=== PATIENT | female | born 1950 | race Caucasian/White ===

== ENCOUNTER 2016-08-03 10:22 | Day surgery (SDC) | payer BC, OTHER ==
[2016-07-29 09:32] VITALS: BMI 34.0
--- NOTE | 2016-07-29 10:11 | PAT Medication Instructions ---
Service Date Jul 29, 2016. Current Home Medication List Aspirin (Aspirin Ec), 81 MG PO QAM Budesonide/Formoterol Fumarate (Symbicort 160/4.5 Inhaler ), 2 PUFFS INH BID Cetirizine (Zyrtec), 10 MG PO HS Chlorphenir/Hydrocod Polistir (Tussionex), 5 ML PO BID PRN for RN Escitalopram (Lexapro), 10 MG PO QAM Lisinopril (Zestril), 10 MG PO QAM Lorazepam (Ativan), 0.5 MG PO HS PRN for RN Montelukast Sodium (Montelukast Sodium), 1 TAB PO QAM Simvastatin (Zocor), 40 MG PO HS Triamcinolone Acetonide (Nasal (Nasacort Allergy 24Hr), 2 SPRAYS [place] HS Medication Instructions For Your Scheduled Surgery Aspirin (Aspirin Ec), 81 MG PO QAM (stopped 07/26/16 per surgeon instructions) - Hold the following medications the morning of surgery: Lisinopril (Zestril), 10 MG PO QAM Chlorphenir/Hydrocod Polistir (Tussionex), 5 ML PO BID PRN for RN - Take the following medications the morning of surgery with a sip of water: Montelukast Sodium (Montelukast Sodium), 1 TAB PO QAM Escitalopram (Lexapro), 10 MG PO QAM Budesonide/Formoterol Fumarate (Symbicort 160/4.5 Inhaler ), 2 PUFFS INH BID Tylenol (if needed) Lorazepam (Ativan), 0.5 MG PO HS PRN for RN (if needed) - Take the following medications as scheduled the night before surgery: Triamcinolone Acetonide (Nasal (Nasacort Allergy 24Hr), 2 SPRAYS [place] HS Simvastatin (Zocor), 40 MG PO HS Lorazepam (Ativan), 0.5 MG PO HS PRN for RN Chlorphenir/Hydrocod Polistir (Tussionex), 5 ML PO BID PRN for RN Cetirizine (Zyrtec), 10 MG PO HS Budesonide/Formoterol Fumarate (Symbicort 160/4.5 Inhaler ), 2 PUFFS INH BID Tylenol (if needed) If you have any questions please call us at [phone] or [phone] ( [place]ila) or [phone]
[2016-07-29 11:32] LABS: BASO % 0.3 %; BASO ABS # 0.02 K/uL (0-0.2); COMPLETE YES; EOS % 4.8 %; HEMATOCRIT 30.1 % (37-47); IG% 0.2 %; LYMPH % 17.7 %; LYMPH ABS # 1.07 K/uL (1.2-3.4); MEAN CELL VOLUME 91.8 fL (80-100); MEAN CORPUSCULAR HEMOGLOBIN 30.5 pg (25-34); MEAN CORPUSCULAR HGB CONC 33.2 g/dl (32-36); MEAN PLATELET VOLUME 9.5 fL (7.4-10.4); MONO % 6.3 %; NEUT % 70.7 %; PLATELET COUNT 257 K/uL (130-400); RED BLOOD COUNT 3.28 M/uL (4.2-5.4); WHITE BLOOD COUNT 6.05 K/uL (4.8-10.8)
[2016-07-29 12:01] LABS: BUN/CREATININE RATIO 15.6 (10-20); CREATININE 0.74 mg/dl (0.60-1.20); POTASSIUM 3.7 mmol/L (3.5-5.1)
[~2016-08-03] VITALS: Ht 154.9 cm; Wt 83.0 kg
[~2016-08-03 10:22] MED LIST: ASPI81TA28 PO; CEFAZOLIN 2000 MG/60 ML D5W IV SCH; CETI10TA84 PO; ESCI10TA17 PO; HYDR1SUS2 PO; LACTATED RINGER'S 1000ML 1,000 ML IV SCH; LISI-461 PO; LORA-741 PO; MONT1TAB5 PO; OXYMETAZOLINE HCL 0.05% NA SPR 15 ML BTL SCH; SIMV40TA2 PO; SYMIN160 INH; TRIA1SPR4 NAE
[2016-08-03 10:45] VITALS: BP 143/74; PULSE 81; TEMP 36.6; O2SAT 92; Ht 154.9 cm; Wt 83.0 kg
[2016-08-03] MEDS ORDERED: LIDOCAINE HCL 2% 2 ML VIAL (20MG/ML) ONE (10:57)
[2016-08-03] MEDS ORDERED: MIDAZOLAM HCL 1 MG/ML 2ML VIAL ONE (10:57)
[2016-08-03] MEDS ORDERED: ROCURONIUM BROMIDE 10 MG/ML 5 ML VIAL ONE (10:57)
[2016-08-03] MEDS ORDERED: PHENYLEPHRINE HCL INJ 10 MG/ML VIAL ONE (10:57)
[2016-08-03] MEDS ORDERED: SUCCINYLCHOLINE CHLORIDE 20 MG/ML 10 ML VIAL IV ONE (10:57)
[2016-08-03] MEDS ORDERED: NEOSTIGMINE METHYLSULFATE 5 MG/5 ML SYR ONE (10:57)
[2016-08-03] MEDS ORDERED: EpHEDrine SULFATE INJ 50 MG/ML AMP ONE (10:57)
[2016-08-03] MEDS ORDERED: GLYCOPYRROLATE INJ 0.2 MG/ML VIAL ONE (10:57)
[2016-08-03] MEDS ORDERED: FENTANYL CITRATE INJ 50 MCG/1 ML 2 ML VIAL ONE (10:57)
[2016-08-03] MEDS ORDERED: PROPOFOL IV EMULSION 10 MG/ML 20 ML VIAL IV ONE (10:57)
[2016-08-03] MEDS ORDERED: ONDANSETRON INJ 2 MG/ML 2 ML VIAL ONE (10:57)
[2016-08-03] MEDS ORDERED: DEXAMETHASONE SOD INJ 4 MG/ML VIAL ONE (10:57)
--- NOTE | 2016-08-03 12:15 | History & Physical Bridge Note ---
H&P Re-Evaluation Bridge Note: I have examined the patient, reviewed the History & Physical and in the interval since the performance of the History & Physical I have noted the following changes of clinical significance: No changes noted
[2016-08-03] MEDS ORDERED: ONDANSETRON INJ 2 MG/ML 2 ML VIAL IV PRN ×2 (13:15→14:30)
[2016-08-03] MEDS ORDERED: ATROPINE SULFATE 0.1 MG/ML 5ML SYR IV PRN (13:15)
[2016-08-03] MEDS ORDERED: EpHEDrine SULFATE INJ 50 MG/ML AMP IV PRN (13:15)
[2016-08-03] MEDS ORDERED: MIX: 4% LIDOCAINE 4ML W/1 ML EPI 1:1000 TOP ONE (13:40)
[2016-08-03] MEDS ORDERED: TRIAMCINOLONE ACET 40 MG/ML VIAL TOP ONE (13:40)
[2016-08-03] MEDS ORDERED: LIDOCAINE/EPINEPHRINE 1% 20 ML VIAL INJ ONE (13:40)
[2016-08-03] MEDS ORDERED: LACTATED RINGER'S 1000ML 1,000 ML IV ONE (14:19)
[2016-08-03] MEDS: FENTANYL CITRATE INJ 50 MCG/1 ML 2 ML VIAL IV PRN ×2 (14:26→14:55)
--- NOTE | 2016-08-03 14:27 | Discharge Instructions ---
Discharge Instructions Admission Reason for Admission: Chronic Sinusitis, B/L Hypertrophy Inferior Nasal Discharge Discharge Diagnosis / Problem: same. Discharge Goals Goal(s): Improve function Activity Recommendations Activity Limitations: per Instructions/Follow-up section Lifting Limitations: no more than 10 pounds, until after follow-up appointment Exercise/Sports Limitations: rest today, until after follow-up appointment May Resume Sexual Activity: after follow-up appointment Shower/Bathe: no limitations Driving or Machine Use: do not drive while taking narcotic medication do not drive while taking narcotic medication resume ASPIRIN AFTER 2 WEEKS. RESUME NASACORT AFTER 2 WEEKS. . Instructions / Follow-Up Instructions / Follow-Up ACTIVITY RECOMMENDATIONS: * Being up and around is good, but no strenuous activity, heavy lifting or physical exertion for one week. * Keep your head elevated 30 degrees when lying down or sleeping. * Do not blow your nose * Avoid VERY hot showers. MEDICATIONS: *YOU HAVE BEEN GIVEN NORCO, AUGMENTIN, AND A MEDROL DOSE PACK. TAKE PRESCRIBED. (ON CHART) * Resume previous medications unless instructed otherwise by your surgeon. NO ASPIRING OR NASACORT FOR 2 WEEKS * Avoid aspirin or Aspirin containing products, i.e. Ibuprofen (Advil) and other non-steroidal anti-inflammatories as they may increase bleeding. SPECIAL CARE INSTRUCTIONS: *BEGIN AFRIN NASAL SPRAY 2 SPRAYS IN EACH NOSTRIL THREE TIMES DAILY FOR 3 DAYS ONLY, THEN NEEDED FOR NOSEBLEEDS *BEGIN NASAL SALINE SPRAY 2 SPRAYS EACH NOSTRIL EVERY 4 HOURS WHILE AWAKE UNTIL FOLLOW UP APPT. * Expect to have bloody drainage from your nose and/or down your throat for one to three days. Change drip pad as needed. * You may experience nasal and facial congestion, pain and pressure, this is normal. * Please call with an significant and/or progressive pain, redness, swelling around the eyes, visual changes, fever of 101.5, active bleeding stiff neck or any problems or concerns. * If active bleeding occurs call . If unable to reach the doctor, go to the nearest Emergency Department. FOLLOW UP VISIT: * SCHEDULED WITH DR. EVERETT . Current Hospital Diet Patient's current hospital diet: Discharge Diet Recommended Diet: Regular Diet Fluid Restriction: None Procedures Procedures Performed: Image Guided Bilateral Endoscopic Sinus Surgery; Bilateral Inferior Turbinate Outfracture and Turbinoplasty Pending Studies Studies pending at discharge: no Laboratory Results Hemoglobin A1c Test 05/16/16 12:02 Range/Units Estimated Average Glucose 68 mg/dl Hemoglobin A1c 4.0 L 4.5-5.6 % Lipid Panel Test 05/16/16 12:02 Range/Units Triglycerides Level 73 0-150 mg/dl Cholesterol Level 129 0-200 mg/dl HDL Cholesterol 72 mg/dl Cholesterol/HDL Ratio 1.8 LDL Cholesterol, Calculated 42 mg/dl Medical Emergencies . Who to Call and When: Medical Emergencies: If at any time you feel your situation is an emergency, please call 911 immediately. . Non-Emergent Contact Non-Emergency issues call your: Primary Care Provider . "Provider Documentation" section prepared by Harleen Simmons. VTE Core Measure Inpt VTE Proph given/why not?: SCD's
[2016-08-03] MEDS ORDERED: OXYMETAZOLINE HCL 0.05% NA SPR 15 ML BTL PRN (14:30)
[2016-08-03] MEDS ORDERED: HYDROCODONE/ACETAMOPHEN 5/325MG TAB PO PRN (14:30)
--- NOTE | 2016-08-03 15:00 | OPERATIVE REPORT ---
DATE OF OPERATION: 08/03/2016 PREOPERATIVE DIAGNOSIS: 1. Chronic polypoid rhinosinusitis. 2. Bilateral inferior turbinate hypertrophy. POSTOPERATIVE DIAGNOSIS: 1. Chronic polypoid rhinosinusitis. 2. Bilateral inferior turbinate hypertrophy. PROCEDURE: Image-guided bilateral endoscopic sinus surgery consisting of: 1. Bilateral maxillary antrostomies. 2. Bilateral complete ethmoidectomies. 3. Bilateral balloon sinuplasty assisted frontal sinusotomies. 4. Bilateral sphenoidotomies. 5. Bilateral inferior turbinate outfracture and turbinoplasty. SURGEON: Dr. Brown. ANESTHESIA: General endotracheal. ESTIMATED BLOOD LOSS: 100 mL. FINDINGS: 1. Severe polypoid mucosal thickening involving all the above-mentioned paranasal sinuses with polypoid tissue blocking the ostiomeatal complexes, frontal ethmoidal recesses, and sphenoethmoidal recesses bilaterally. 2. Bilateral inferior turbinate hypertrophy. SPECIMENS: None. COMPLICATIONS: None. INDICATIONS FOR THE PROCEDURE: The patient is a 66-year-old female with a history of recurrent acute and chronic polypoid rhinosinusitis which has been unresponsive to maximal medical therapy including 6 rounds of systemic antibiotics and steroids. A post-treatment CT scan of the sinuses revealed pansinusitis, bilateral inferior turbinate hypertrophy, and mild right-sided septal deviation which appeared to be nonobstructed. She presents for the above-mentioned procedure on an outpatient elective basis. OPERATION AND FINDINGS: DETAILS OF PROCEDURE: After informed consent had been obtained from the patient, the patient was wheeled to the operating room and placed on the operating table in the supine position. Monitors were placed after induction of general endotracheal anesthesia. The patient was pepped in usual fashion for image guided endoscopic sinus surgery. The Enduring Hydro Fusion head set was placed on the patient's forehead, registered, calibrated, and verified. This was used for the primarily frontal sinus and sphenoid sinus portions of the procedure. Lidocaine and epinephrine soaked pledgets were placed in the bilateral nasal cavities and pressure applied. After allowing adequate time for anesthesia and vasoconstriction, the left side pledgets were removed and Rapelje elevator was used to medialize the left middle turbinate. The left middle turbinate and lateral nasal wall and uncinate process were injected with 1% lidocaine with 1:100,000 epinephrine. A lidocaine and epinephrine soaked pledget was then placed into the left middle meatus. The right side was then addressed in a similar fashion. The left-sided pledgets were removed and a Rapelje elevator was used to incise uncinate process from superior to inferior direction and the uncinate process was removed using a straight Martinez-Cut forceps and powered instrumentation. The natural ostium of the left maxillary sinus was identified. This was enlarged anteriorly, inferiorly, and posteriorly using powered instrumentation. Of note, the patient had severe polypoid mucosal thickening blocking the natural ostium of the maxillary sinus as well as filling the majority of the maxillary sinus as well. A complete ethmoidectomy was then performed using powered instrumentation and posteriorly image guidance was used to delineate the posterior extent of the dissection. Using a transethmoid approach to the sphenoid sinus this was entered using a Joaquin suction and the medial and inferior aspect of the sphenoid sinus ostia was enlarged using powered instrumentation. A curved frontal sinus suction was then placed into the left frontal sinus and after confirming placement the suction was removed. A #6 frontal sinus balloon was then inserted into the left frontal sinus and inflated to 12 atmospheres of pressure to dilate the frontal recess tract. Polypoid tissue was removed from the frontal recess track using powered instrumentation. Of note, there was severe polypoid mucosal thickening involving all of the left side paranasal sinuses with no purulence encountered. A pledget was then placed in the left ethmoid cavity. The right side was then addressed. This was dressed in a similar fashion with very similar intraoperative findings. A Perez elevator was then used to infracture and subsequently outfracture the inferior turbinates bilaterally. These were injected with 1% lidocaine with 1:100,000 epinephrine. A 2.0 mm turbinate blade using powered instrumentation was then used to perform bilateral inferior turbinate opacities in a submucosal fashion. The sinonasal cavities and nasopharynx were then suctioned. Stammberger nasal dressing mixed with Kenalog 40 mg per mL was then instilled into the bilateral ethmoid cavities/middle meati. The nasal cavity and nasopharynx, oral cavity and oropharynx were then suctioned. An orogastric tube was placed and the stomach was suctioned free of air and stomach contents. There is marked the end of the case. The patient tolerated the procedure well and there were no apparent complications. The patient was extubated and transferred to recovery room in stable condition. I attest to the content of the Intraoperative Record and any orders documented therein. Any exceptio ns are noted below.
--- NOTE | 2016-08-03 15:22 | Anesthesiology Progress Note ---
Anesthesia Post Op Note Date & Time Aug 03, 2016 at 15:22 Vital Signs Pain Intensity: 4 Vital Signs Past 12 Hours Date Time Temp Pulse Resp B/P Pulse Ox O2 Delivery O2 Flow Rate FiO2 08/03/16 15:00 62 16 93 08/03/16 15:00 63 16 08/03/16 14:59 133/61 08/03/16 14:55 69 21 08/03/16 14:55 69 21 92 08/03/16 14:54 139/56 08/03/16 14:50 72 17 08/03/16 14:50 72 17 95 08/03/16 14:48 158/87 08/03/16 14:45 74 23 93 08/03/16 14:45 74 23 08/03/16 14:44 134/84 08/03/16 14:40 70 18 08/03/16 14:40 69 18 92 08/03/16 14:38 158/90 08/03/16 14:35 67 17 08/03/16 14:35 67 17 98 08/03/16 14:34 134/63 08/03/16 14:30 60 16 08/03/16 14:30 60 16 92 08/03/16 14:29 140/69 08/03/16 14:25 80 21 94 08/03/16 14:25 78 21 08/03/16 14:24 158/88 08/03/16 14:20 88 20 08/03/16 14:20 87 20 96 08/03/16 14:19 179/87 08/03/16 14:15 98 23 08/03/16 14:15 97 23 98 08/03/16 14:15 35.7 92 12 184/67 95 Mask 10 08/03/16 10:45 36.6 81 2 143/74 92 Room Air Notes Mental Status: alert / awake / arousable, participated in evaluation Pt Amnestic to Procedure: Yes Nausea / Vomiting: adequately controlled Pain: adequately controlled Airway Patency, RR, SpO2: stable & adequate BP & HR: stable & adequate Hydration State: stable & adequate Anesthetic Complications: no major complications apparent
[2016-08-03 15:45] VITALS: BP 126/64; PULSE 62; TEMP 36.6; O2SAT 94
[2016-08-03 16:15] VITALS: BP 128/65; PULSE 77; O2SAT 97
[2016-08-03 16:45] VITALS: BP 170/68; PULSE 77; TEMP 36.7; O2SAT 95
== END 2016-08-03 16:50 | disposition home or self-care (01) ==
LOC: C.ACU 10:22
DX: J32.9 Chronic sinusitis, unspecified (principal); J34.3 Hypertrophy of nasal turbinates; J34.2 Deviated nasal septum; H65.92 Unspecified nonsuppurative otitis media, left ear; I10 Essential (primary) hypertension; I65.29 Occlusion and stenosis of unspecified carotid artery; I73.9 Peripheral vascular disease, unspecified; M53.3 Sacrococcygeal disorders, not elsewhere classified

== ENCOUNTER → 2016-09-01 | Outpatient (CLI) | payer BC ==
[~2016-09-01] MED LIST changes: +ADVIN50/60 INH; +AMOX875T PO; +ASPCH81X PO; -ASPI81TA28 PO; -CEFAZOLIN 2000 MG/60 ML D5W IV SCH; +FLUT0.15 NAE; -LACTATED RINGER'S 1000ML 1,000 ML IV SCH; +LOSA50TA6 PO; +ONDA4TAB46 PO; -OXYMETAZOLINE HCL 0.05% NA SPR 15 ML BTL SCH; -TRIA1SPR4 NAE
[2016-09-01 13:36] LABS: BASO % 0.5 %; BASO ABS # 0.03 K/uL (0-0.2); COMPLETE YES; EOS % 4.7 %; HEMATOCRIT 34.2 % (37-47); IG% 0.2 %; LYMPH % 18.6 %; LYMPH ABS # 1.03 K/uL (1.2-3.4); MEAN CELL VOLUME 92.2 fL (80-100); MEAN CORPUSCULAR HEMOGLOBIN 29.9 pg (25-34); MEAN CORPUSCULAR HGB CONC 32.5 g/dl (32-36); MEAN PLATELET VOLUME 9.4 fL (7.4-10.4); MONO % 8.3 %; NEUT % 67.7 %; PLATELET COUNT 248 K/uL (130-400); RED BLOOD COUNT 3.71 M/uL (4.2-5.4); WHITE BLOOD COUNT 5.54 K/uL (4.8-10.8)
[2016-09-01 13:43] LABS: FERRITIN 81.9 ng/ml (8.0-388.0)
--- NOTE | 2016-09-07 08:17 | CODING QUERY MEDICAL NECESSITY ---
SUPPORTING DIAGNOSIS NEEDED A supporting diagnosis is required for the test/procedure performed on this patient in order for us to be reimbursed by the patient's insurance. Please provide a supporting diagnosis for the following test/procedure listed below next to the test name along with your signature. *If there is no additional diagnosis for this patient that would support the following test/procedure please document that below next to the test/procedure. Test(s)/Procedure(s) that require a supporting diagnosis: * VITAMIN B-12 LEVEL DIAGNOSIS: * DOS: 09/01/16 Provider Signature: Date: Thank you Ria Collins Health Information Management Once completed, please kindly fax back to [phone] For questions please call [phone]
== END | disposition home or self-care (01) ==
LOC: C.LABBC 10:04
PROVIDERS: ATTEND Internal Medicine
DX: D64.9 Anemia, unspecified (principal)

== ENCOUNTER → 2016-09-08 | Outpatient (CLI) | payer BC ==
[2016-09-14 18:17] LABS: ASPERGILLUS FUMIGATUS NEGATIVE (NEGATIVE); M. FAENI (S. RECTIVIRGULA) NEGATIVE (NEGATIVE); PIGEON SERUM NEGATIVE (NEGATIVE); SACCHAROMONOSPORA VIRIDIS AB NEGATIVE (NEGATIVE); THERMOACTINOMYCES CANDIDUS NEGATIVE (NEGATIVE); THERMOACTINOMYCES VULGARIS NEGATIVE (NEGATIVE)
== END | disposition home or self-care (01) ==
LOC: C.LAB1850 12:34
PROVIDERS: ATTEND Internal Medicine Pulmonary Disease
DX: R05 Cough (principal); J32.9 Chronic sinusitis, unspecified; J30.9 Allergic rhinitis, unspecified

== ENCOUNTER → 2016-09-15 | Outpatient (CLI) | payer BC | END | disposition home or self-care (01) | LOC: C.LAB1850 11:49 | PROVIDERS: ATTEND Internal Medicine Pulmonary Disease | DX: R05 Cough (principal) ==

== ENCOUNTER → 2016-12-22 | Outpatient (CLI) | payer BC ==
--- NOTE | 2016-12-22 11:52 | DIAGNOSTIC IMAGING REPORT ---
ULTRASOUND LEFT LOWER EXTREMITY VENOUS CLINICAL HISTORY: Left leg pain. COMPARISON STUDY: No priors. TECHNIQUE: Real-time, grayscale, and color Doppler sonography of the deep veins of the left lower extremity was performed from the inguinal crease to the calf. Compression and augmentation were utilized. FINDINGS: There is nonocclusive deep venous thrombosis identified in the left calf within the peroneal vein. The remaining calf vessels are patent. No above knee deep venous thrombosis is identified. The common femoral, superficial femoral, and popliteal veins are patent and normally compressible. The greater saphenous vein and the profunda femoris vein at the junction with the common femoral vein are clear. IMPRESSION: 1. There is nonocclusive deep venous thrombosis identified in the left calf within the peroneal vein. 2. There is no sonographic evidence of above-knee deep venous thrombosis identified in the left lower extremity. Electronically signed by: Ronan Black M.D. 12/22/2016 11:51 AM Dictated Date/Time: 12/22/2016 11:50 AM
[2016-12-22 13:35] LABS: BASO % 0.3 %; BASO ABS # 0.02 K/uL (0-0.2); COMPLETE YES; EOS % 3.1 %; HEMATOCRIT 34.8 % (37-47); IG% 0.2 %; LYMPH % 13.6 %; LYMPH ABS # 0.87 K/uL (1.2-3.4); MEAN CELL VOLUME 93.5 fL (80-100); MEAN CORPUSCULAR HEMOGLOBIN 30.6 pg (25-34); MEAN CORPUSCULAR HGB CONC 32.8 g/dl (32-36); MEAN PLATELET VOLUME 9.5 fL (7.4-10.4); MONO % 6.6 %; NEUT % 76.2 %; PLATELET COUNT 226 K/uL (130-400); RED BLOOD COUNT 3.72 M/uL (4.2-5.4); WHITE BLOOD COUNT 6.41 K/uL (4.8-10.8)
[2016-12-22 13:58] LABS: BLOOD UREA NITROGEN 15 mg/dl (7-18); BUN/CREATININE RATIO 19.6 (10-20); CARBON DIOXIDE 26 mmol/L (21-32); CHLORIDE 109 mmol/L (98-107); CREATININE 0.77 mg/dl (0.60-1.20); GLUCOSE 93 mg/dl (70-99); SODIUM 144 mmol/L (136-145)
[2016-12-22 14:29] LABS: LYME DISEASE AB IGG NEG (NEG)
[2016-12-22 14:32] LABS: LYME DISEASE AB IGM NEG (NEG)
[2016-12-22 14:59] LABS: CALCIUM 8.9 mg/dl (8.5-10.1)
== END | disposition home or self-care (01) ==
LOC: C.ULTRBC 10:55
PROVIDERS: ATTEND Physician Assistant Medical
DX: Z00.00 Encounter for general adult medical examination without abnormal findings (principal); M79.606 Pain in leg, unspecified; J30.9 Allergic rhinitis, unspecified; J45.909 Unspecified asthma, uncomplicated; D64.9 Anemia, unspecified; I10 Essential (primary) hypertension; I82.492 Acute embolism and thrombosis of other specified deep vein of left lower extremity

== ENCOUNTER 2016-12-23 13:17 | Emergency (ER) | payer BC ==
[~2016-12-23] VITALS: Ht 157.5 cm; Wt 83.6 kg
[~2016-12-23 13:17] MED LIST changes: -ADVIN50/60 INH; -AMOX875T PO; -ASPCH81X PO; -FLUT0.15 NAE; -LOSA50TA6 PO; -ONDA4TAB46 PO
[2016-12-23 13:21] VITALS: Ht 157.5 cm; Wt 83.6 kg
[2016-12-23] MEDS ORDERED: ONDANSETRON INJ 2 MG/ML 2 ML VIAL IV STA (13:48)
[2016-12-23] MEDS ORDERED: SODIUM CHLORIDE 0.9% 1000ML 1,000 ML IV STA ×2 (13:48)
[2016-12-23] MEDS ORDERED: ACETAMINOPHEN 500 MG TAB PO STA (13:52)
--- NOTE | 2016-12-23 13:55 | EMERGENCY ROOM VISIT NOTE ---
History Report prepared by [place]: Corie Boyle Under the Supervision of: Dr. Ronan Jacobsen M.D. First contact with patient: 13:25 Chief Complaint: FEVER Stated Complaint: DX: BLOOD CLOT IN LEG YEST., FEVER, VOMITING History of Present Illness The patient is a 66 year old female who presents to the Emergency Room with complaints of a persistent fever that began this morning. She currently rates her discomfort as a 7/10 in severity. The patient states that for the past six days she has been experiencing left calf pain. She states that she had an Ultrasound done yesterday at her primary care physician's office and was found to have a DVT. The patient states that she was started on Xarelto yesterday. She states that this morning she woke up with a fever. The patient states that she has a history of chronic respiratory problems and notes that she noticed blood tinged mucous from her nose. She additionally associates a productive cough and shortness of breath with her cough. The patient reports that she has been vomiting persistently. She denies any chest pain or urinary symptoms. The patient reports a history of sinus surgery in July. She states that she has a history of asthma. The patient reports that she uses Advair twice per day. She states that she recently had sick contacts while in [place] and notes that 1 week ago she travelled by plane from [place]. Source of History: patient Onset: this morning Position: other (global) Symptom Intensity: 7/10 Quality: other (fever) Timing: other (persistent) Associated Symptoms: + cough, + SOB, + vomiting, No chest pain, No urinary symptoms Review of Systems See HPI for pertinent positives & negatives. A total of 10 systems reviewed and were otherwise negative. Past Medical & Surgical Medical Problems: (1) Hypertension Surgical Problems: (1) S/P D&C (status post dilation and curettage) Family History Cancer FHx: gallbladder disease FHx: lung disease Social History Smoking Status: Former Smoker Alcohol Use: occasionally Marital Status: Housing Status: lives with significant other Occupation Status: retired Current/Historical Medications Scheduled Amoxicillin & Pot Clavulanate (Augmentin 875-125 mg), 1 TAB PO BID Aspirin (Aspirin Chewable), 81 MG PO QAM Escitalopram (Lexapro), 10 MG PO QAM Fluticasone Prop/Salmeterol (Advair Diskus 500/50 60 Dose), 1 PUFF INH BID Fluticasone Propionate (Nasal) (Flonase Allergy Relief), 2 SPRAYS [place] BID Lisinopril (Zestril), 10 MG PO QAM Simvastatin (Zocor), 40 MG PO HS Scheduled PRN Lorazepam (Ativan), 0.5 MG PO HS PRN for RN Ondansetron Hcl (Zofran), 4 MG PO Q8 PRN for Nausea Allergies Coded Allergies: Azithromycin (Verified Allergy, Intermediate, HIVES, 12/23/16) Shellfish Allergy (Verified Allergy, Intermediate, "THROWING UP, PASSING OUT.", 12/23/16) Dust (Verified Adverse Reaction, Mild, DUST POLLEN ITCHY EYES SLIGHT WHEEZING, 12/23/16) Physical Exam Vital Signs Date Time Temp Pulse Resp B/P (MAP) Pulse Ox O2 Delivery O2 Flow Rate FiO2 12/23/16 17:26 37.0 12/23/16 17:23 93 22 130/76 95 Room Air 12/23/16 16:25 91 18 98/61 98 Room Air 12/23/16 14:32 103 18 166/88 95 Room Air 12/23/16 13:21 37.9 118 20 208/97 94 Room Air Physical Exam GENERAL: Patient is in no acute distress. HEENT: No acute trauma, normocephalic atraumatic, mucous membranes moist, moderate nasal congestion, no scleral icterus. NECK: No stridor, no adenopathy, no meningismus, trachea is midline. LUNGS: Wheezing bilaterally, no rhonchi, breath sounds are equal, no respiratory distress. HEART: Mildly tachycardic with a regular rhythm, no murmurs. ABDOMEN: Soft, nontender, bowel sounds positive, no hernias, no peritonitis. EXTREMITIES: No cyanosis or edema, full range of motion of all the joints without pain or difficulty, no signs for acute trauma. NEUROLOGIC: Oriented x 3, no acute motor or sensory deficits, no focal weakness. SKIN: No rash, no jaundice, no diaphoresis. Medical Decision & Procedures ER Provider Diagnostic Interpretation: X-ray results as stated below per interpretation by me and the radiologist: CHEST ONE VIEW PORTABLE CLINICAL HISTORY: Cough, DVT COMPARISON STUDY: 05/24/2016 FINDINGS: The cardiac and mediastinal contours are normal. There is no evidence of focal pulmonary consolidation. There is no evidence of failure. No pleural effusions are visualized.[ IMPRESSION: No active disease in the chest. Electronically signed by: Rock Wilkinson M.D. 12/23/2016 3:20 PM Dictated Date/Time: 12/23/2016 3:20 PM Laboratory Results 12/23/16 13:50 Red Blood Count 3.68, Mean Corpuscular Volume 91.0, Mean Corpuscular Hemoglobin 30.7, Mean Corpuscular Hemoglobin Concent 33.7, Mean Platelet Volume 8.7, Neutrophils (%) (Auto) 90.2, Lymphocytes (%) (Auto) 4.2, Monocytes (%) (Auto) 4.4, Eosinophils (%) (Auto) 0.9, Basophils (%) (Auto) 0.2, Neutrophils # (Auto) 9.95, Lymphocytes # (Auto) 0.46, Monocytes # (Auto) 0.49, Eosinophils # (Auto) 0.10, Basophils # (Auto) 0.02 Test 12/23/16 13:50 12/23/16 14:00 White Blood Count 11.03 K/uL (4.8-10.8) Red Blood Count 3.68 M/uL (4.2-5.4) Hemoglobin 11.3 g/dL (12.0-16.0) Hematocrit 33.5 % (37-47) Mean Corpuscular Volume 91.0 fL (80-100) Mean Corpuscular Hemoglobin 30.7 pg (25-34) Mean Corpuscular Hemoglobin Concent 33.7 g/dl (32-36) Platelet Count 192 K/uL (130-400) Mean Platelet Volume 8.7 fL (7.4-10.4) Neutrophils (%) (Auto) 90.2 % Lymphocytes (%) (Auto) 4.2 % Monocytes (%) (Auto) 4.4 % Eosinophils (%) (Auto) 0.9 % Basophils (%) (Auto) 0.2 % Neutrophils # (Auto) 9.95 K/uL (1.4-6.5) Lymphocytes # (Auto) 0.46 K/uL (1.2-3.4) Monocytes # (Auto) 0.49 K/uL (0.11-0.59) Eosinophils # (Auto) 0.10 K/uL (0-0.5) Basophils # (Auto) 0.02 K/uL (0-0.2) RDW Standard Deviation 50.3 fL (36.4-46.3) RDW Coefficient of Variation 15.1 % (11.5-14.5) Immature Granulocyte % (Auto) 0.1 % Immature Granulocyte # (Auto) 0.01 K/uL (0.00-0.02) Red Blood Cell Morphology Unremarkable Urine Color YELLOW Urine Appearance CLEAR (CLEAR) Urine pH 8.0 (4.5-7.5) Urine Specific [place] 1.018 (1.000-1.030) Urine Protein NEG (NEG) Urine Glucose (UA) NEG (NEG) Urine Ketones TRACE (NEG) Urine Occult Blood NEG (NEG) Urine Nitrite NEG (NEG) Urine Bilirubin NEG (NEG) Urine Urobilinogen NEG (NEG) Urine Leukocyte Esterase NEG (NEG) Laboratory results reviewed by me. Medications Administered Medications (Trade) Dose Ordered Sig/Lyric Route Start Time Stop Time Status Last Admin Dose Admin Albuterol (Ventolin Hfa Inhaler) 4 puffs NOW ONCE INH 12/23/16 14:00 12/23/16 14:01 DC 12/23/16 14:27 4 PUFFS Ondansetron HCl (Zofran Inj) 4 mg NOW STAT IV 12/23/16 13:48 12/23/16 13:52 DC 12/23/16 14:27 4 MG Sodium Chloride 1,000 ml @ 999 mls/hr Q1H1M STAT IV 12/23/16 13:48 12/23/16 14:48 DC 12/23/16 14:27 999 MLS/HR Sodium Chloride 1,000 ml @ 200 mls/hr Q5H STAT IV 12/23/16 13:48 12/23/16 18:09 DC 12/23/16 16:25 200 MLS/HR Acetaminophen (Tylenol Tab) 1,000 mg NOW STAT PO 12/23/16 13:52 12/23/16 13:53 DC 12/23/16 14:29 1,000 MG Amoxicillin/ Clavulanate Potassium (Augmentin Tab) 875 mg NOW ONCE PO 12/23/16 16:30 12/23/16 16:31 DC 12/23/16 17:22 875 MG ED Course 1330: The patient was evaluated in room B10. A complete history and physical exam was performed by the Fruit Worker. 1343: The patient was evaluated in room B10. A complete history and physical exam was performed. 1348: Ordered Sodium Chloride 1000 ml @ 200 mls/hr IV, Sodium Chloride 1000 ml @ 999 mls/hr IV, Zofran Inj 4 mg IV. 1352: Ordered Tylenol Tab 1000 mg PO. 1400: Ordered Albuterol 4 puffs INH. 1441: The resident reevaluated the patient at this time. 1528: The resident reevaluated the patient at this time and she is resting comfortably. The resident updated the patient on the exam findings thus far. We are awaiting a urine sample. 1615: The resident reevaluated the patient at this time and she is resting comfortably. He explained all the exam findings with the patient and discussed the treatment plan. She verbalized complete understanding and agreement. The patient will be ready for discharge shortly. 1630: Ordered Augmentin Tab 875 mg PO. Medical Decision The patient is a 66 year old female who presents to the ED with complaints of a fever. Differential diagnoses considered include viral illness, sinusitis, bronchitis, pneumonia, cellulitis, exacerbation of asthma, medication reaction. There is a mild leukocytosis, this could be consistent with infection. The white count elevation is new compared to yesterday. No concerning anemia. Blood cultures are pending. Chest film does not show pneumonia or CHF. Urinalysis does not show infection. Renal panel testing from yesterday did not show renal failure or significant electrolyte abnormality. The patient likely has an acute sinusitis and/or bronchitis. This is on top of the new diagnosis of left leg DVT. She should continue the Xarelto. We are going to add Augmentin for the sinuses. During the patient's ER stay, she received IV Zofran, IV saline, albuterol via MDI. She was given a dose of oral Augmentin. She was given oral Tylenol. She was able to eat after the Zofran. The patient is comfortable with discharge. She is to return here for worsening symptoms, she will see her doctor's office for a recheck early next week. Medication Reconciliation: I attest that I have personally reviewed the patient' s current medication list. Blood Pressure Screening: Patient was found to have an elevated blood pressure and was referred to their primary doctor for recheck and further treatment. Impression Primary Impression: Acute sinusitis Additional Impressions: Acute bronchitis Exacerbation of asthma Left leg DVT Scribe Attestation The scribe's documentation has been prepared under my direction and personally reviewed by me in its entirety. I confirm that the note above accurately reflects all work, treatment, procedures, and medical decision making performed by me. Departure Information Dispostion Home / Self-Care Prescriptions Ondansetron Hcl (ZOFRAN) 4 Mg Tab 4 MG PO Q8 Y for Nausea, #10 TAB Prov: Saurav Molina MD 12/23/16 Amoxicillin & Pot Clavulanate (Augmentin 875-125 mg) 1 Tab Tab 1 TAB PO BID for Cough for 10 Days, #20 TAB Prov: Saurav Molina MD 12/23/16 Referrals Lorenzo Choi M.D. (PCP) Forms HOME CARE DOCUMENTATION FORM, IMPORTANT VISIT INFORMATION Patient Instructions My [facility] Additional Instructions - Take Augmentin 875mg twice daily for upper respiratory infection - Take Albuterol enhaler 3 puffs every 4-6 hours as needed during episodes of shortness of breath and cough - Continue to take Xarelto as instructed - Take Tylenol up to 1000mg every 8 hours as needed for fever or headache and do not exceed 3000mg in 24 hours - Take Zofran 8mg every 8 hours as needed for nausea - Follow up with your primary care provider in the next week - If you develop concerning symptoms including worsening fever, chills, headache , chest pain, shortness of breath, vomiting blood, or any other concerning symptoms please return to the emergency department or be seen by a doctor Problem Qualifiers
--- NOTE | 2016-12-23 13:57 | EMERGENCY ROOM VISIT NOTE ---
History First contact with patient: 13:25 Chief Complaint: FEVER Stated Complaint: DX: BLOOD CLOT IN LEG YEST., FEVER, VOMITING History of Present Illness The patient is a 66 year old female who presents to the Emergency Room with complaints of fever and blood tinged mucous. The patient was seen on [address] yesterday with a 4 day history of left leg pain. On Ultrasound she was found to have a DVT in the left calf and was subsequently started on Xarelto. She awoke this morning with a slight fever and general fatigue. She also stated that she had some blood visible with mucous that she sneezed from her nose. She has also had vomiting with drinking and has been unable to keep down liquids since this morning. She has taken 2 doses of Xarelto since being diagnosed with the blood clot. She also has a history of cough and wheezing since February with a complete workup including Chest Xray, Chest CT, Head CT, and surgery with Dr. Palacios. She denies any new onset chest pain, shortness of breath, abdominal pain, dizziness, changes in vision, or dysuria. Review of Systems See HPI for pertinent positives and negatives. A total of ten systems were reviewed and were otherwise negative. Past Medical/Surgical History Medical Problems: (1) Hypertension Surgical Problems: (1) S/P D&C (status post dilation and curettage) Family History Cancer FHx: gallbladder disease FHx: lung disease Social History Smoking Status: Former Smoker Alcohol Use: occasionally Current/Historical Medications Scheduled Aspirin (Aspirin Chewable), 81 MG PO QAM Escitalopram (Lexapro), 10 MG PO QAM Fluticasone Prop/Salmeterol (Advair Diskus 500/50 60 Dose), 1 PUFF INH BID Fluticasone Propionate (Nasal) (Flonase Allergy Relief), 2 SPRAYS [place] BID Lisinopril (Zestril), 10 MG PO QAM Simvastatin (Zocor), 40 MG PO HS Scheduled PRN Lorazepam (Ativan), 0.5 MG PO HS PRN for RN Allergies Coded Allergies: Azithromycin (Verified Allergy, Intermediate, HIVES, 12/23/16) Shellfish Allergy (Verified Allergy, Intermediate, "THROWING UP, PASSING OUT.", 12/23/16) Dust (Verified Adverse Reaction, Mild, DUST POLLEN ITCHY EYES SLIGHT WHEEZING, 12/23/16) Physical Exam Vital Signs Date Time Temp Pulse Resp B/P (MAP) Pulse Ox O2 Delivery O2 Flow Rate FiO2 12/23/16 16:25 91 18 98/61 98 Room Air 12/23/16 14:32 103 18 166/88 95 Room Air 12/23/16 13:21 37.9 118 20 208/97 94 Room Air Physical Exam GENERAL: Awake, alert, well-appearing, in no distress HENT: Normocephalic, atraumatic. EYES: Normal conjunctiva. Sclera non-icteric. NECK: Supple. No nuchal rigidity. RESPIRATORY: Bilateral expiratory wheezing, cough with deep breaths CARDIAC: Regular rate, normal rhythm. Extremities warm and well perfused. Pulses equal. ABDOMEN: Soft, non-distended. No tenderness to palpation. No rebound or guarding. No masses. RECTAL: Deferred. MUSCULOSKELETAL: Chest examination reveals no tenderness. The back is symmetrical on inspection without obvious abnormality. There is no CVA tenderness to palpation. No joint edema. LOWER EXTREMITIES: Calves are equal size bilaterally. No edema. No discoloration. Tenderness over left calf with palpation. NEURO: Normal sensorium. No sensory or motor deficits noted. SKIN: No rash or jaundice noted. Medical Decision & Procedures Laboratory Results 12/23/16 13:50 Red Blood Count 3.68, Mean Corpuscular Volume 91.0, Mean Corpuscular Hemoglobin 30.7, Mean Corpuscular Hemoglobin Concent 33.7, Mean Platelet Volume 8.7, Neutrophils (%) (Auto) 90.2, Lymphocytes (%) (Auto) 4.2, Monocytes (%) (Auto) 4.4, Eosinophils (%) (Auto) 0.9, Basophils (%) (Auto) 0.2, Neutrophils # (Auto) 9.95, Lymphocytes # (Auto) 0.46, Monocytes # (Auto) 0.49, Eosinophils # (Auto) 0.10, Basophils # (Auto) 0.02 Test 12/23/16 13:50 12/23/16 14:00 White Blood Count 11.03 K/uL (4.8-10.8) Red Blood Count 3.68 M/uL (4.2-5.4) Hemoglobin 11.3 g/dL (12.0-16.0) Hematocrit 33.5 % (37-47) Mean Corpuscular Volume 91.0 fL (80-100) Mean Corpuscular Hemoglobin 30.7 pg (25-34) Mean Corpuscular Hemoglobin Concent 33.7 g/dl (32-36) Platelet Count 192 K/uL (130-400) Mean Platelet Volume 8.7 fL (7.4-10.4) Neutrophils (%) (Auto) 90.2 % Lymphocytes (%) (Auto) 4.2 % Monocytes (%) (Auto) 4.4 % Eosinophils (%) (Auto) 0.9 % Basophils (%) (Auto) 0.2 % Neutrophils # (Auto) 9.95 K/uL (1.4-6.5) Lymphocytes # (Auto) 0.46 K/uL (1.2-3.4) Monocytes # (Auto) 0.49 K/uL (0.11-0.59) Eosinophils # (Auto) 0.10 K/uL (0-0.5) Basophils # (Auto) 0.02 K/uL (0-0.2) RDW Standard Deviation 50.3 fL (36.4-46.3) RDW Coefficient of Variation 15.1 % (11.5-14.5) Immature Granulocyte % (Auto) 0.1 % Immature Granulocyte # (Auto) 0.01 K/uL (0.00-0.02) Red Blood Cell Morphology Unremarkable Urine Color YELLOW Urine Appearance CLEAR (CLEAR) Urine pH 8.0 (4.5-7.5) Urine Specific [place] 1.018 (1.000-1.030) Urine Protein NEG (NEG) Urine Glucose (UA) NEG (NEG) Urine Ketones TRACE (NEG) Urine Occult Blood NEG (NEG) Urine Nitrite NEG (NEG) Urine Bilirubin NEG (NEG) Urine Urobilinogen NEG (NEG) Urine Leukocyte Esterase NEG (NEG) Medications Administered Medications (Trade) Dose Ordered Sig/Lyric Route Start Time Stop Time Status Last Admin Dose Admin Albuterol (Ventolin Hfa Inhaler) 4 puffs NOW ONCE INH 12/23/16 14:00 12/23/16 14:01 DC 12/23/16 14:27 4 PUFFS Ondansetron HCl (Zofran Inj) 4 mg NOW STAT IV 12/23/16 13:48 12/23/16 13:52 DC 12/23/16 14:27 4 MG Sodium Chloride 1,000 ml @ 999 mls/hr Q1H1M STAT IV 12/23/16 13:48 12/23/16 14:48 DC 12/23/16 14:27 999 MLS/HR Sodium Chloride 1,000 ml @ 200 mls/hr Q5H STAT IV 12/23/16 13:48 12/23/16 18:47 12/23/16 16:25 200 MLS/HR Acetaminophen (Tylenol Tab) 1,000 mg NOW STAT PO 12/23/16 13:52 12/23/16 13:53 DC 12/23/16 14:29 1,000 MG Medical Decision Patient is a 66 year old female that presents with 1 day history of fever Differential diagnosis considered include UTI, Pneumonia, PE, Medication reaction, Viral Illness and other etiologies. Labs Ordered: UA, CBC, Blood Cultures Imaging Ordered: Chest Xray Medications Ordered: Zofran, Tylenol - After receiving the Zofran the patient states that her nausea has resolved and she was able to take the Tylenol - Patient has tolerated PO Diet and Liquids - UA negative - Elevated WBC - Given 875mg Augmentin - CXR no acute abnormalities Patient appears to have acute sinusitis/ bronchitis based on lab workup and physical exam. Patient given 1 dose of Augmentin in hospital and will be discharged on a 10 day course of Augmentin. She was also instructed to use her inhalers as instructed to improve her shortness of breath. She was also treated with Zofran for nausea and will be given 3 days worth as an outpatient. Impression Primary Impression: Acute sinusitis Additional Impressions: Exacerbation of asthma Acute bronchitis Left leg DVT Departure Information Dispostion Home / Self-Care Condition GOOD Prescriptions Ondansetron Hcl (ZOFRAN) 4 Mg Tab 4 MG PO Q8 Y for Nausea, #10 TAB Prov: Saurav Molina MD 12/23/16 Amoxicillin & Pot Clavulanate (Augmentin 875-125 mg) 1 Tab Tab 1 TAB PO BID for Cough for 10 Days, #20 TAB Prov: Saurav Molina MD 12/23/16 Referrals Lorenzo Choi M.D. (PCP) Patient Instructions [facility] Problem Qualifiers Primary Impression: Acute sinusitis Sinusitis location: unspecified location Recurrence: non-recurrent Qualified Codes: J01.90 - Acute sinusitis, unspecified Additional Impressions: Acute bronchitis Bronchitis organism: unspecified organism Qualified Codes: J20.9 - Acute bronchitis, unspecified Left leg DVT Affected thrombotic vein of extremity: unspecified vein of extremity Chronicity: acute Qualified Codes: I82.402 - Acute embolism and thrombosis of unspecified deep veins of left lower extremity
[2016-12-23] MEDS ORDERED: ALBUTEROL HFA 8 GM INHALER INH ONE (14:00)
[2016-12-23 14:25] LABS: HEMATOCRIT 33.5 % (37-47); MEAN CORPUSCULAR HEMOGLOBIN 30.7 pg (25-34); MEAN CORPUSCULAR HGB CONC 33.7 g/dl (32-36); MEAN PLATELET VOLUME 8.7 fL (7.4-10.4); PLATELET COUNT 192 K/uL (130-400); RED BLOOD COUNT 3.68 M/uL (4.2-5.4); WHITE BLOOD COUNT 11.03 K/uL (4.8-10.8)
[2016-12-23 14:47] LABS: BASO % 0.2 %; BASO ABS # 0.02 K/uL (0-0.2); COMPLETE YES; EOS % 0.9 %; IG% 0.1 %; LYMPH % 4.2 %; LYMPH ABS # 0.46 K/uL (1.2-3.4); MONO % 4.4 %; NEUT % 90.2 %
--- NOTE | 2016-12-23 15:22 | DIAGNOSTIC IMAGING REPORT ---
CHEST ONE VIEW PORTABLE CLINICAL HISTORY: Cough, DVT COMPARISON STUDY: 05/24/2016 FINDINGS: The cardiac and mediastinal contours are normal. There is no evidence of focal pulmonary consolidation. There is no evidence of failure. No pleural effusions are visualized.[ IMPRESSION: No active disease in the chest. Electronically signed by: Rock Wilkinson M.D. 12/23/2016 3:20 PM Dictated Date/Time: 12/23/2016 3:20 PM
[2016-12-23] MEDS ORDERED: ASPCH81X PO (16:07)
[2016-12-23] MEDS ORDERED: FLUT0.15 NAE (16:07)
[2016-12-23] MEDS ORDERED: ADVIN50/60 INH (16:07)
[2016-12-23 16:21] LABS: URINE APPEARANCE CLEAR (CLEAR); URINE BILIRUBIN NEG (NEG); URINE COLOR YELLOW; URINE NITRITE NEG (NEG); URINE SPECIFIC GRAVITY 1.018 (1.000-1.030); UROBILINOGEN NEG (NEG)
[2016-12-23 16:23] LABS: MANUAL MICROSCOPIC REQUIRED? NO; REVIEW REQ? NO
[2016-12-23] MEDS ORDERED: AMOXICILLIN/CLAVULANATE TAB 875 MG TAB PO ONE (16:30)
[2016-12-23] MEDS ORDERED: AMOX875T PO (17:17)
[2016-12-23] MEDS ORDERED: ONDA4TAB46 PO (17:17)
[2016-12-23 17:23] VITALS: BP 130/76; PULSE 93; O2SAT 95
[2016-12-23 17:26] VITALS: TEMP 37
== END 2016-12-23 17:50 | disposition home or self-care (01) ==
LOC: C.EDB 13:19
DX: J01.90 Acute sinusitis, unspecified (principal); J20.9 Acute bronchitis, unspecified; J45.901 Unspecified asthma with (acute) exacerbation; I82.4Z2 Acute embolism and thrombosis of unspecified deep veins of left distal lower extremity; I10 Essential (primary) hypertension; Z87.891 Personal history of nicotine dependence; Z79.82 Long term (current) use of aspirin; R11.10 Vomiting, unspecified

== ENCOUNTER → 2016-12-26 | Outpatient (CLI) | payer BC ==
[~2016-12-26] MED LIST changes: +ADVIN50/60 INH; +AMOX875T PO; +ASPCH81X PO; -CETI10TA84 PO; +FLUT0.15 NAE; -HYDR1SUS2 PO; +LOSA50TA6 PO; -MONT1TAB5 PO; +ONDA4TAB46 PO; -SYMIN160 INH
== END | disposition home or self-care (01) ==
LOC: C.LAB1850 13:14
PROVIDERS: ATTEND Internal Medicine Pulmonary Disease
DX: R05 Cough (principal); J32.9 Chronic sinusitis, unspecified; J30.9 Allergic rhinitis, unspecified; J45.909 Unspecified asthma, uncomplicated; I82.409 Acute embolism and thrombosis of unspecified deep veins of unspecified lower extremity

== ENCOUNTER → 2016-12-29 | Outpatient (CLI) | payer BC ==
[~2016-12-29] MED LIST changes: +OPTIRAY 320 IV PRN
--- NOTE | 2016-12-29 09:57 | DIAGNOSTIC IMAGING REPORT ---
CT SCAN OF THE CHEST WITH IV CONTRAST CLINICAL HISTORY: Cough. COMPARISON STUDY: Chest CT dated 06/10/2016. Chest x-ray dated 12/23/2016. TECHNIQUE: Following the IV administration of 118 cc of Optiray 320, CT scan of the thorax was performed from the thoracic inlet to the upper abdomen. Images are reviewed in the axial, sagittal, and coronal planes. IV contrast was administered without complication. CT DOSE: 300.26 mGy.cm FINDINGS: Thyroid: Imaged portions of the thyroid gland are normal in size and attenuation. Thoracic aorta: There is atherosclerotic calcification of the thoracic aorta, which is normal in caliber and demonstrates standard 3-vessel arch anatomy. No dissection is seen. Pulmonary vasculature: The pulmonary trunk is normal in caliber. There are no filling defects identified in the central pulmonary vessels to indicate pulmonary embolus. Note that this examination was not protocoled for evaluation of the pulmonary arteries. Heart: The heart is normal in size and configuration, and without pericardial effusion. The coronary arteries are densely calcified. Lungs and pleural spaces: Mild paraseptal emphysematous changes are seen at the lung apices. There are foci of scarring and atelectasis seen in the right middle lobe and lingula. No lobar consolidation or pleural effusion is identified. There are subtle tree-in-bud airspace opacities present in the lower lobes. The trachea and central airways are clear. 3 mm and 4 mm right lower lobe pulmonary nodules are seen on images #193 and #201. These are similar to previous. Mediastinum: There are scattered subcentimeter mediastinal lymph nodes. These are not pathologically enlarged by size criteria. Jenny: Clear. Axillae: There is no axillary lymphadenopathy. Upper abdomen: A cortical calcification in the upper pole the left kidney is similar to previous. Atherosclerotic calcification is seen in the partially imaged abdominal aorta. Partially visualized upper abdominal viscera is otherwise within normal limits. Skeletal structures: The skeletal structures are osteopenic. No lytic or blastic bony lesions are seen. IMPRESSION: 1. There are foci of linear scarring/atelectasis within the right middle lobe and lingula. Additionally, there are subtle foci of tree-in-bud nodularity seen throughout the lower lobes. The appearance suggests am atypical and possibly chronic infectious/inflammatory process such as NAUN. Clinical correlation will be required. 2. There is no lobar consolidation or pleural effusion. 3. Mild emphysema. 4. There are 2 right lower lobe pulmonary nodules measuring up to 4 mm. These are unchanged from 06/10/2016 and can be followed if clinically warranted. See below. 5. Additional findings as above. Please refer to below summary of Fleischner criteria recommendations for follow-up of incidental CT nodules (Suzan Quinonez, Guidelines for management of small pulmonary nodules detected on CT scans: A statement from the Fleischner Society, Radiology 237: [phone].) SOLID NODULES Solitary nodule size: <6 mm * low risk patients: no follow-up needed * high risk patients: optional CT at 12 months Solitary nodule size: 6-8 mm * low risk patients: follow-up at 6-12 months, then consider further follow-up at 18-24 months * high risk patients: initial follow-up CT at 6-12 months and then at 18-24 months if no change Solitary nodule size: >8 mm * either low or high risk patients - consider follow-up CT at 3 months, and/or CT-PET, and/or biopsy Multiple nodules size: <6 mm * low risk patients: no routine follow-up * high risk patients: optional CT at 12 months Multiple nodules size: 6-8 mm * low risk patients: follow-up at 3-6 months, then consider further follow-up at 18-24 months * high risk patients: follow-up at 3-6 months, then at 18-24 months if no change Multiple nodules size: >8 mm * low risk patients: follow-up at 3-6 months, then consider further follow-up at 18-24 months * high risk patients: follow-up at 3-6 months, then at 18-24 months if no change Note: newly detected indeterminate nodule in persons 35 years of age or older. * low risk patients: minimal or absent history of smoking and/or other known risk factors * high risk patients: history of smoking or of other known risk factors (e.g. first degree relative with lung cancer, or exposure to asbestos, radon, uranium) * if a nodule up to 8 mm is partly solid or is ground glass further follow-up is required after 24 months to exclude possible slow growing adenocarcinoma (CHERI) SUBSOLID NODULES Solitary pure ground-glass nodule * nodule size <6 mm - no CT follow-up required * nodule size >=6 mm - follow-up CT at 6-12 months, then every 2 years until 5 years Solitary part-solid nodule * nodule size <6 mm - no CT follow-up required * nodule size >=6 mm - follow-up CT at 3-6 months. If unchanged, and solid component remains <6 mm, then annual follow-up for 5 years Multiple subsolid nodules * nodule size <6 mm - follow-up CT at 3-6 months, consider further follow-up at 2 and 4 years if stable * nodule size >=6 mm - follow-up CT at 3-6 months, subsequent management based on the most suspicious nodule(s) Electronically signed by: Ronan Black M.D. 12/29/2016 9:55 AM Dictated Date/Time: 12/29/2016 9:41 AM
== END | disposition home or self-care (01) ==
LOC: C.CTS 09:21
PROVIDERS: ATTEND Internal Medicine Pulmonary Disease
DX: I82.409 Acute embolism and thrombosis of unspecified deep veins of unspecified lower extremity (principal); J32.9 Chronic sinusitis, unspecified; J30.9 Allergic rhinitis, unspecified; J45.909 Unspecified asthma, uncomplicated; R91.8 Other nonspecific abnormal finding of lung field

== ENCOUNTER → 2017-01-05 | Outpatient (CLI) | payer BC ==
[~2017-01-05] MED LIST changes: -AMOX875T PO; -OPTIRAY 320 IV PRN
== END | disposition home or self-care (01) ==
LOC: C.LAB1850 10:29
PROVIDERS: ATTEND Internal Medicine Pulmonary Disease
DX: R05 Cough (principal)

== ENCOUNTER → 2017-02-20 | Outpatient (CLI) | payer BC ==
--- NOTE | 2017-02-20 14:03 | MAMMOGRAPHY REPORT ---
BILATERAL DIGITAL SCREENING MAMMOGRAM WITH CAD: 02/20/2017 CLINICAL HISTORY: Routine screening. TECHNIQUE: Bilateral CC and MLO views were obtained. Repeat CC views were obtained with the nipples in profile. Current study was also evaluated with a Computer Aided Detection (CAD) system. COMPARISON: Comparison is made to exams dated: 02/17/2016 mammogram, 02/13/2015 mammogram, 02/12/2014 m ammogram, 02/11/2013 mammogram, 01/18/2012 mammogram, and 01/14/2011 mammogram - [facility] enter. BREAST COMPOSITION: There are scattered areas of fibroglandular density in both breasts. FINDINGS: A 5 mm nodular asymmetry in the superior posterior right breast on the MLO view appears sim ilar to many prior mammograms including the 2008, 2009, and 2010 exams, most likely an intramammary l ymph node. No new suspicious mass, architectural distortion or cluster of microcalcifications is seen . IMPRESSION: ACR BI-RADS CATEGORY 1: NEGATIVE There is no mammographic evidence of malignancy. A 1 year screening mammogram is recommended. The pa tient will receive written notification of the results. Approximately 10% of breast cancers are not detected with mammography. A negative mammographic report should not delay biopsy if a clinically suggestive mass is present. Keren Domingo M.D. ay/:02/20/2017 11:05:39 [employer]: Kassy NGUYEN)(Avinash), [facility] letter sent: Normal 1/2 BI-RADS Code: ACR BI-RADS Category 1: Negative
== END | disposition home or self-care (01) ==
LOC: C.MAMM 09:08
PROVIDERS: ATTEND Internal Medicine
DX: Z12.31 Encounter for screening mammogram for malignant neoplasm of breast (principal)

== ENCOUNTER → 2017-03-01 | Outpatient (CLI) | payer BC ==
[2017-03-01 13:50] LABS: BASO % 0.6 %; BASO ABS # 0.03 K/uL (0-0.2); COMPLETE YES; EOS % 4.2 %; HEMATOCRIT 35.8 % (37-47); IG% 0.2 %; LYMPH % 21.6 %; LYMPH ABS # 1.02 K/uL (1.2-3.4); MEAN CELL VOLUME 94.5 fL (80-100); MEAN CORPUSCULAR HEMOGLOBIN 31.1 pg (25-34); MEAN PLATELET VOLUME 9.3 fL (7.4-10.4); MONO % 8.5 %; NEUT % 64.9 %; PLATELET COUNT 229 K/uL (130-400); RED BLOOD COUNT 3.79 M/uL (4.2-5.4); WHITE BLOOD COUNT 4.72 K/uL (4.8-10.8)
[2017-03-01 14:06] LABS: ALT/SGPT 21 U/L (12-78); AST/SGOT 15 U/L (15-37); BLOOD UREA NITROGEN 14 mg/dl (7-18); BUN/CREATININE RATIO 19.7 (10-20); CARBON DIOXIDE 30 mmol/L (21-32); CHLORIDE 110 mmol/L (98-107); CREATININE 0.71 mg/dl (0.60-1.20); GLUCOSE 85 mg/dl (70-99); HDL CHOLESTEROL 64 mg/dl; POTASSIUM 4.1 mmol/L (3.5-5.1); SODIUM 143 mmol/L (136-145)
[2017-03-01 14:07] LABS: ALB/GLOB RATIO 1.3 (0.9-2); ALKALINE PHOSPHATASE 61 U/L (45-117); CHOLESTEROL 116 mg/dl (0-200); CHOLESTEROL/HDL RATIO 1.8; LDL CHOLESTEROL CALCULATED 39 mg/dl; TRIGLYCERIDES 66 mg/dl (0-150); VERY LOW DENSITY LIPOPROT CALC 13 mg/dl
--- NOTE | 2017-03-07 11:15 | CODING QUERY MEDICAL NECESSITY ---
CQSUPPORTING DIAGNOSIS NEEDED A supporting diagnosis is required for the test/procedure performed on this patient in order for us to be reimbursed by the patient's insurance. Please provide a supporting diagnosis for the following test/procedure listed below next to the test name along with your signature. *If there is no additional diagnosis for this patient that would support the following test/procedure please document that below next to the test/procedure. Test(s)/Procedure(s) that require a supporting diagnosis: CARROLL 03/01/17 COMPLETE BLOOD COUNT TEST Provider Signature: Date: Thank you Lulu Peres Health Information Management Once completed, please kindly fax back to [phone] For questions please call [phone]
== END | disposition home or self-care (01) ==
LOC: C.LABBC 10:20
PROVIDERS: ATTEND Internal Medicine
DX: M19.90 Unspecified osteoarthritis, unspecified site (principal); D64.9 Anemia, unspecified

== ENCOUNTER → 2017-03-03 | Outpatient (CLI) | payer BC ==
--- NOTE | 2017-03-03 10:54 | DIAGNOSTIC IMAGING REPORT ---
LEFT VENOUS DOPP LOWER EXT UNILAT CLINICAL HISTORY: I82.409 DVT of leg (deep venous thrombosis)Left. Pain. Edema. TECHNIQUE: Venous Doppler COMPARISON STUDY: 12/22/2016 FINDINGS: Normal study IMPRESSION: Normal study The above report was generated using voice recognition software. It may contain grammatical, syntax or spelling errors. Electronically signed by: Jet Conteh M.D. 03/03/2017 10:53 AM Dictated Date/Time: 03/03/2017 10:52 AM
== END | disposition home or self-care (01) ==
LOC: C.ULTRBC 10:22
PROVIDERS: ATTEND Internal Medicine
DX: I82.409 Acute embolism and thrombosis of unspecified deep veins of unspecified lower extremity (principal); M79.605 Pain in left leg; R60.0 Localized edema

== ENCOUNTER → 2017-03-07 | Outpatient (CLI) | payer BC ==
--- NOTE | 2017-03-07 12:03 | DIAGNOSTIC IMAGING REPORT ---
BILATERAL CAROTID DOPPLER STUDY HISTORY: ASYMPTOMATIC CAROTID ARTERY STENOSIS COMPARISON: Carotid Doppler 12/17/2015. TECHNIQUE: Real-time, grayscale, and color Doppler sonography of the carotid arteries was performed. Imaging reviewed in the transverse and longitudinal planes. All measurements were calculated based on NASCET criteria. FINDINGS: Antegrade flow is seen in the bilateral vertebral arteries. Moderate calcified plaque within the proximal bilateral internal carotid arteries. The peak systolic velocity within the right ICA is 78 cm/s. The right systolic ratio is 0.8. The peak systolic velocity within the left ICA is 260 cm/s. The left systolic ratio is 3.4. IMPRESSION: 1. Slight progression of the greater than 70% stenosis within the proximal left internal carotid artery. 2. No significant stenosis within the right carotid arteries. Electronically signed by: Nish Conley M.D. 03/07/2017 12:02 PM Dictated Date/Time: 03/07/2017 12:00 PM
== END | disposition home or self-care (01) ==
LOC: C.ULTRBC 11:22
PROVIDERS: ATTEND Physician Assistant Medical
DX: I65.22 Occlusion and stenosis of left carotid artery (principal)

== ENCOUNTER → 2017-03-22 | Outpatient (CLI) | payer BC ==
[2017-03-22 15:41] LABS: BASO % 0.3 %; BASO ABS # 0.02 K/uL (0-0.2); COMPLETE YES; EOS % 2.1 %; HEMATOCRIT 34.6 % (37-47); IG% 0.1 %; LYMPH % 18.7 %; LYMPH ABS # 1.33 K/uL (1.2-3.4); MEAN CELL VOLUME 92.3 fL (80-100); MEAN CORPUSCULAR HEMOGLOBIN 30.1 pg (25-34); MEAN CORPUSCULAR HGB CONC 32.7 g/dl (32-36); MEAN PLATELET VOLUME 9.5 fL (7.4-10.4); MONO % 5.8 %; PLATELET COUNT 227 K/uL (130-400); RED BLOOD COUNT 3.75 M/uL (4.2-5.4); WHITE BLOOD COUNT 7.11 K/uL (4.8-10.8)
[2017-03-22 15:51] LABS: PROTHROMBIN TIME (PATIENT) 10.2 SECONDS (9.0-12.0)
[2017-03-22 16:13] LABS: ALT/SGPT 23 U/L (12-78); AST/SGOT 14 U/L (15-37); BLOOD UREA NITROGEN 21 mg/dl (7-18); BUN/CREATININE RATIO 28.6 (10-20); CALCIUM 9.1 mg/dl (8.5-10.1); CARBON DIOXIDE 28 mmol/L (21-32); CHLORIDE 107 mmol/L (98-107); CREATININE 0.74 mg/dl (0.60-1.20); GLUCOSE 86 mg/dl (70-99); SODIUM 139 mmol/L (136-145)
[2017-03-22 16:16] LABS: ALB/GLOB RATIO 1.5 (0.9-2); ALKALINE PHOSPHATASE 67 U/L (45-117)
== END | disposition home or self-care (01) ==
LOC: C.LAB1850 14:34
PROVIDERS: ATTEND Physician Assistant
DX: R05 Cough (principal)

== ENCOUNTER 2017-03-29 08:25 | Day surgery (SDC) | payer BC ==
--- NOTE | 2017-03-28 11:03 | HISTORY & PHYSICAL EXAMINATION ---
DATE OF ADMISSION: 03/29/2017 HISTORY OF PRESENT ILLNESS: A 66-year-old female evaluated in the outpatient office referred for bronchoscopy with a history of recurrent purulent cough. Prior records were reviewed. PAST MEDICAL HISTORY: Includes: History of seasonal allergic rhinitis, chronic sinusitis status post sinus surgery July 2006, history of asthma/reactive airway disease, history of left lower extremity DVT (December 2016), anemia, hypertension, hyperlipidemia, osteoarthritis, peripheral vascular disease, and former tobacco: [id number], quit June 2015. The patient initially seen in the interventional patient access representative's office January 2017 and consideration of bronchoscopy secondary to recurrent cough productive of bright yellow sputum with associated wheeze, fevers, and chills beginning February 2016. She had reported at that time symptoms began post-exposure to mold in her air conditioning unit while on vacation. Symptoms persisted despite use of Advair, Symbicort, Singulair, nasal wash, and discontinuation of lisinopril. Sputum culture obtained August 2016 grew normal rush. Hypersensitivity panel was unremarkable. CBC was without eosinophilia or leukocytosis. She completed multiple rounds of prednisone as well as intermittent antibiotic with initial improvement followed by decompensation once treatment course was completed. Cough was so severe such as to provoke emesis at times. CT 12/29/2016: subtle foci of tree-in-bud bilateral upper and lower lobes, mild emphysema 2 x 4 mm with right lower lobe nodules (stable since May 2016). Sputum culture obtained 01/05/2017 was positive for hemophilus influenza, which was resistant to ampicillin and sensitive to Bactrim. This also grew rare Aspergillus fumigatus. She completed 4 weeks of Bactrim and at the time of her initial evaluation summer she reported feeling markedly improved. No bronchoscopy was pursued at that time given her clinical improvement. Unfortunately, shortly thereafter, she reported her cough returned and only improved transiently with a course of Ceftin. She stated on her recurrent outpatient evaluation 03/05/2017 that cough was again persistent productive of yellow sputum. She reported concurrent symptoms of postnasal drip and similar yellow rhinorrhea. She denied any symptoms of sinus congestion however and stated that her last visit with her ear, nose and throat physician in December went well (this was in the window in which she was clinically feeling better overall post Bactrim). Her anticoagulation was discontinued after Doppler 03/03/2017 no longer demonstrated DVT. She does have an appointment with vascular after a left-sided carotid ultrasound noted 70% stenosis - LICA. Of note, she is planning to move to [place] early April. PAST MEDICAL HISTORY: 1. Abnormal chest CT. 2. Allergic dermatitis. 3. Allergic rhinitis. 4. Anemia. 5. Asthma. 6. Asymptomatic carotid artery stenosis. 7. Osteoarthritis. 8. Chronic sinusitis. 9. Recurrent purulent cough. 10. Hyperlipidemia. 11. Hypertension. 12. Peripheral vascular disease. 13. Community-acquired pneumonia. 14. Hemophilus influenza on sputum. 15. DVT left lower extremity. 16. Osteoarthritis. SOCIAL HISTORY: 1. Former smoker. 2. The patient is retired. FAMILY HISTORY: 1. COPD. 2. Peripheral vascular disease. SURGICAL HISTORY: 1. Colonoscopy. 2. Nasal septoplasty. 3. Sinus surgery. 4. Turbinectomy. MEDICATIONS: 1. ProAir HFA 108 mcg/ACT inhalation aerosol solution: Inhale 2 puffs every 4-6 hours as needed. 2. Escitalopram oxalate 10 mg oral tablet: Take 1 tablet by mouth every day. 3. Lorazepam 0.5 mg oral tablet: Take 1 tablet at bedtime. 4. Simvastatin 40 mg oral tablet: Take 1 tablet daily. 5. Losartan potassium 50 mg oral tablet: Take 1 tablet daily. 6. Aspirin 81 mg oral tablet delayed release: Take 1 tablet daily. 7. Saline nasal spray: Use as needed. ALLERGIES: 1. AZITHROMYCIN. 2. SHELLFISH. 3. DUST. PHYSICAL EXAMINATION: VITAL SIGNS: Blood pressure 126/80 right upper extremity sitting, height 5 foot and 3/4 inches, weight 175 pounds. Oxygen saturation is 97% on room air, temperature 98.9 degrees Fahrenheit, respiratory rate 16 respirations per minute, heart rate 70 beats per minute. CONSTITUTIONAL: Well-developed, well-nourished, obese female. No acute distress. HEAD: Positive facial symmetry. EYES: EOMI, PERRLA, no conjunctival injection. MOUTH: Moist mucous membranes. No erythema, exudate, or postnasal drip. NECK: Trachea is midline without adenopathy or masses. RESPIRATORY: Nonlabored respirations. Wheeze and coarse rales on the left. No clubbing or cyanosis. CARDIOVASCULAR: Regular rate and rhythm, no murmurs, rubs or gallops. +2 radial pulses bilaterally. Less than 1 second capillary refill. ABDOMEN: Soft, active bowel sounds. INTEGUMENTARY: No rashes, ecchymosis, or lesions. Right wrist tattoo noted. MUSCULOSKELETAL AND EXTREMITIES: Moving and developed symmetrically. No peripheral edema. NEUROLOGIC: Alert and oriented. Data recall is intact. Appropriate affect. REVIEW OF SYSTEMS: CONSTITUTIONAL: Denies fevers, weight gain, chills or weight loss. EYES: Ocular headache. EARS, NOSE, THROAT: Positive for nasal discharge, but as noted in HPI. Denies pharyngitis or vocal hoarseness. CARDIOVASCULAR: Denies chest pain, palpitations, or peripheral edema. RESPIRATORY: Positive for cough and wheeze as noted in HPI. Denies orthopnea or dyspnea on exertion. GASTROINTESTINAL: Denies any emesis or heartburn. INTEGUMENTARY: Negative. HEMATOLOGIC AND LYMPHATIC: Negative. ASSESSMENT AND PLAN: A 66-year-old female presented to the office rereferred by Dr. Yepez/Kaylin Posada for consideration of bronchoscopy for recurrent purulent bronchitis. We will set her up for bronchoscopy with a preprocedural blood work. She has an upcoming evaluation for LICA stenosis as well. She should be seen by ENT as well given her resurgence of URI symptoms concurrent with her lower respiratory symptoms. We will arrange for bronchoscopy with BAL and follow in the office post procedure to review results prior to her departure for [place] in April. Patient and chart reviewed and plan agreed upon MTDD
[2017-03-29] VITALS (17 sets, daily range): BP systolic 105–176; BP diastolic 55–99; PULSE 56–73; TEMP 36.9–37.2; O2SAT 91–98; Ht 154.9 cm; Wt 80.0 kg
[~2017-03-29] VITALS: Ht 154.9 cm; Wt 80.0 kg
[~2017-03-29 08:25] MED LIST changes: -LOSA50TA6 PO
[2017-03-29] MEDS ORDERED: MIDAZOLAM HCL 5 MG/ML 1 ML VIAL IV ONE ×2 (08:26→11:00)
[2017-03-29] MEDS ORDERED: FENTANYL CITRATE 100 MCG 2 ML CARP IV ONE (08:26)
[2017-03-29] MEDS ORDERED: LIDOCAINE HCL 2% LOCAL 50ML VIAL INFIL ONE (08:26)
[2017-03-29] MEDS ORDERED: LOSA50TA6 PO (08:56)
--- NOTE | 2017-03-29 10:06 | History and Physical ---
History & Physical Date Mar 29, 2017. Chief Complaint Chronic bronchiectasis with acute History of Present Illness The patient is a 66 year old female with complaints of chronic bronchiectasis with acute flare: Patient initially seen in the office mid-January 2017 for consideration of bronchoscopy secondary to recurrent cough productive of bright yellow sputum with associated wheeze, fevers and chills beginning 02/2016. She reports symptoms began post exposure to mold the air conditioning unit while on vacation. Symptoms persisted despite use of Advair Symbicort Singulair, nasal washes, and discontinuation of lisinopril. Sputum culture 08/2016 grew normal rush. Hypersensitivity panel: unremarkable. CBC no eosinophilia or leukocytosis. She completed multiple rounds of prednisone as well as intermittent antibiotic with initial improvement followed by decompensation once treatment course was complete. Cough was so severe such as [address] 12/29/2016: Subtle foci tree-in-bud bilateral lower lobes. Mild emphysema , 2 x 4mm RLL nodules (stable 05/2016). Sputum culture 01/05/2017 + Haemophilus influenzae resistant to ampicillin and sensitive to Bactrim. Rare Aspergillus fumigatus. She completed 4 weeks of Bactrim ant at the time of her initial evaluation she had been feeling nearly improved. Unfortunately, shortly thereafter, her cough returned and improved only transiently with a course of Ceftin. Cough now remains persistently productive of yellow sputum. She reports concurrent symptoms of post nasal gtt and similar yellow rhinorrhea. She denies any symptoms of sinus congestion and states that her last visit with ENT in December went well (this was in the window in which she was feeling better). Her anticoagulation was discontinued after doppler 03/03/17 no longer demonstrated DVT. She does have an appointment with vascular after left sided carotic ultrasound noted 70% stenosis -LICA. OF note, she is planning to move to [place] early April. Microbiology Expectorated sputum: 01/05/2017: Aspergillus fumigatus Expectorated sputum 01/05/2017: Haemophilus influenzae beta lactamase positive , Aspergillus fumigatus Past Medical/Surgical History Medical Problems: (1) Hypertension Surgical Problems: (1) S/P D&C (status post dilation and curettage) Additional History Hepatic Disease: No Endocrine Disorder: No Kidney Disease: No Hypertension: Yes Heart Disease: No Bleeding Tendencies: No Infectious Diseases: No Allergies Coded Allergies: Azithromycin (Verified Allergy, Intermediate, HIVES, 03/29/17) Shellfish Allergy (Verified Allergy, Intermediate, "THROWING UP, PASSING OUT.", 03/29/17) Dust (Verified Adverse Reaction, Mild, DUST POLLEN ITCHY EYES SLIGHT WHEEZING, 03/29/17) Home Medications Scheduled Aspirin (Aspirin Chewable), 81 MG PO QAM Escitalopram (Lexapro), 10 MG PO QAM Fluticasone Propionate (Nasal) (Flonase Allergy Relief), 2 SPRAYS [place] BID Losartan Potassium (Cozaar), 1 TAB PO DAILY Simvastatin (Zocor), 40 MG PO HS Scheduled PRN Lorazepam (Ativan), 0.5 MG PO HS PRN for RN Ondansetron Hcl (Zofran), 4 MG PO Q8 PRN for Nausea Physical Examination Skin: warm/dry, no rash Eyes: normal inspection, EOMI, sclerae normal ENT: normal ENT inspection, pharynx normal Head: normocephalic, atraumatic Neck: supple, no adenopathy, trachea midline Respiratory/Chest: lungs clear, normal breath sounds, no respiratory distress Cardiovascular: regular rate, rhythm, no edema, no murmur Abdomen / GI: normal bowel sounds, non tender Back: normal inspection Extremities: normal inspection, normal range of motion Neurologic/Psych: no motor/sensory deficits, alert, normal reflexes, oriented x 3 Diagnosis Chronic bronchitis with acute flare Plan of Treatment Bronchoscopy with conscious sedation bronchial lavage
--- NOTE | 2017-03-29 10:07 | Procedure Note ---
Pre-Mod Sedation Assessment General Date of Moderate Sedation: Mar 29, 2017. Vital Signs: Vital Signs Past 12 Hours Date Time Temp Pulse Resp B/P (MAP) Pulse Ox O2 Delivery O2 Flow Rate FiO2 03/29/17 09:48 37.2 70 18 176/99 96 Room Air 03/29/17 08:57 37.2 70 18 176/99 (124) 96 Room Air Review Cardiovascular: regular rate, rhythm, no edema, no gallop, no JVD, no murmur Abdomen: normal bowel sounds, non tender, soft, no organomegaly, no pulsatile mass Lungs: chest non-tender, lungs clear, normal breath sounds, no respiratory distress Airway Class: II Pre-Sedation Airway Assessment Oral Cavity: WNL Short Thick Neck: No Hx of Sleep Apnea: No Smoking Status: Former Smoker Mallampati Classification: Class III ASA Classification: Class II Procedure Planning Contraindications-for Mod Sed: None Yes Notes The planned sedation has been discussed with the patient and consent obtained. I have identified the patient, determined the appropriateness of sedation and have assessed the patient immediately prior to the procedure. All medicine(s) and interventions are by my order.
--- NOTE | 2017-03-29 10:53 | Bronchoscopy Procedure Note ---
Bronchoscopy Procedure Note Procedure: Bronchoscopy, conscious sedation, bronchial lavage right middle and left lower lobe Consent: Obtained through the patient placed into the chart Pre-procedural diagnosis: Chronic bronchiectasis Post-procedural diagnosis: Chronic bronchiectasis and chronic rhinitis Start time: 1026 End time: 1045 Total time: 19 minutes Analgesia: 2% liquid lidocaine: Via nebulizer 4% gel lidocaine: Via right naris 2% liquid lidocaine: Via bronchoscopy Sedation: Versed IV: 4 mg Fentanyl IV: 75 g Procedure: The Olympus video bronchoscope was used for this procedure and passed down through the right naris Right naris/posterior naris/posterior oropharynx: Diffuse erythema especially in the posterior naris Glottis: Anatomically within normal limits Vocal cords: Proper abduction and abduction, anatomically within normal limits Subglottis/trachea/Mary Jo: Anatomically within normal limits Right bronchial tree: Right mainstem bronchus: Anatomically within normal limits Right upper lobe: Anatomically within normal limits Bronchus intermedius: Anatomically within normal limits, EDAC appreciated approximately 80% during passive expiration Right middle lobe: Anatomically within normal limits Right lower lobe: Anatomically within normal limits Findings: EDAC notable within the bronchus intermedius Left bronchial tree: Left mainstem bronchus: Anatomically within normal limits, EDAC appreciated approximately 80% during passive expiration Left upper lobe: Anatomically within normal limits Lingula: Anatomically within normal limits Left lower lobe: Anatomically within normal limits Findings: No significant findings noted, EDAC noted in the left mainstem Bronchial alveolar lavage: Performed of the right middle and left lower lobe EBL: None Complications: None Follow-up: In the [facility]
--- NOTE | 2017-03-29 10:56 | Discharge Instructions ---
Discharge Instructions Date of Service Mar 29, 2017. Admission Reason for Admission: Asthma, Cough Discharge Discharge Diagnosis / Problem: chronic bronchiectasis and chronic rhinitis Discharge Goals Goal(s): Improve function, Diagnostic testing Activity Recommendations Activity Limitations: resume your previous activity . Instructions / Follow-Up Instructions / Follow-Up Follow-up in the [facility] pulmonary clinic Current Hospital Diet Patient's current hospital diet: Discharge Diet Recommended Diet: Regular Diet Procedures Procedures Performed: Bronchoscopy with bronchial lavage of the right middle lobe and left lower lobe as well as conscious sedation Pending Studies Studies pending at discharge: no Laboratory Results Lipid Panel Test 03/01/17 10:22 Range/Units Triglycerides Level 66 0-150 mg/dl Cholesterol Level 116 0-200 mg/dl HDL Cholesterol 64 mg/dl Cholesterol/HDL Ratio 1.8 LDL Cholesterol, Calculated 39 mg/dl Medical Emergencies . Who to Call and When: Medical Emergencies: If at any time you feel your situation is an emergency, please call 911 immediately. . Non-Emergent Contact Non-Emergency issues call your: Rn Chemical Dependency . . "Provider Documentation" section prepared by Star García. . VTE Core Measure Inpt VTE Proph given/why not?: Treatment not indicated
[2017-03-29] MEDS ORDERED: NURSING VERBAL MED ORDER ONE (11:00)
[2017-03-29] MEDS ORDERED: FENTANYL CITRATE INJ 50 MCG/1 ML 2 ML VIAL IV ONE (11:00)
== END 2017-03-29 12:55 | disposition home or self-care (01) ==
LOC: C.ACU 08:25
PROVIDERS: ATTEND Internal Medicine Critical Care Medicine
DX: J47.9 Bronchiectasis, uncomplicated (principal); J31.0 Chronic rhinitis; I10 Essential (primary) hypertension; Z79.82 Long term (current) use of aspirin; Z79.899 Other long term (current) drug therapy

== ENCOUNTER → 2017-05-19 | Outpatient (CLI) | payer BC ==
[~2017-05-19] MED LIST changes: -ADVIN50/60 INH; -LISI-461 PO; +LOSA50TA6 PO
[2017-05-19 12:47] LABS: IMMUNOGLOBULN M 95.4 mg/dL (40-230)
== END | disposition home or self-care (01) ==
LOC: C.LAB1850 11:16
PROVIDERS: ATTEND Physician Assistant
DX: J14 Pneumonia due to Hemophilus influenzae (principal); J45.909 Unspecified asthma, uncomplicated

== ENCOUNTER → 2017-06-05 | Outpatient (CLI) | payer BC ==
[2017-06-09 21:32] LABS: PNEUMOCOCCAL IGG TYPE 1 16.7; PNEUMOCOCCAL IGG TYPE 12(12F 0.6; PNEUMOCOCCAL IGG TYPE 14 1.5; PNEUMOCOCCAL IGG TYPE 23(23F >48.0; PNEUMOCOCCAL IGG TYPE 4 1.2; PNEUMOCOCCAL IGG TYPE 5 5.1; PNEUMOCOCCAL IGG TYPE 51 (7F 4.3; PNEUMOCOCCAL IGG TYPE 56(18C 3.3; PNEUMOCOCCAL IGG TYPE 68 (9V 1.2; PNEUMOCOCCAL IGG TYPE 8 3.6; PNEUMOCOCCAL IGG TYPE 9 (9N) 36.1; TETANUS ANTIBODY TC 50922P 1.03 IU/mL (>0.15)
== END | disposition home or self-care (01) ==
LOC: C.LAB1850 15:39
PROVIDERS: ATTEND Physician Assistant Medical
DX: J14 Pneumonia due to Hemophilus influenzae (principal); D80.3 Selective deficiency of immunoglobulin G [IgG] subclasses

== ENCOUNTER → 2017-08-14 | Outpatient (CLI) | payer BC ==
[~2017-08-14] MED LIST changes: -ONDA4TAB46 PO
== END | disposition home or self-care (01) ==
LOC: C.LAB1850 09:40
PROVIDERS: ATTEND Physician Assistant Medical
DX: R05 Cough (principal); J14 Pneumonia due to Hemophilus influenzae